=== PATIENT | male | born 1940 | race Caucasian/White ===

== ENCOUNTER 2019-04-14 14:44 | Outpatient (CLI) | payer MEDICARE, SELFPAY ==
--- NOTE | ~2019-04-14 | MR_ITS ---
EXAMINATION: MR brain/brain stem wo/w con EXAM DATE: 04/14/2019 15:58 INDICATION: Lung cancer. TECHNIQUE: Magnetic resonance imaging (MRI) of the brain/brain stem obtained without contrast. Sagit geovanny T1, axial diffusion, gradient echo (T2*), T1, T2, FLAIR sequences obtained. Patient was then inj ected with 15 cc intravenous Multihance contrast. Axial and coronal postcontrast T1 weighted sequence s obtained. There is no prior study for comparison. FINDINGS: There are no areas of restricted diffusion to suggest acute infarction. There is no acute hemorrhage seen on the T2*, a hemosiderin sensitive sequence. No intraparenchymal brain mass lesion. There is mild periventricular and subcortical T2/FLAIR signal hyperintensity, nonspecific but probab ly related to small vessel ischemic disease (microangiopathy). There is mild prominence of the sulc i and ventricles related to cerebral atrophy. There are no extra-axial collections. Flow voids are seen in the cerebral arteries on the T2-weighted sequences consistent with their expected patency. The orbits are unremarkable. Soft tissue is unremarkable. Mild to moderate ethmoid and sphenoid muc operiosteal thickening. There are no areas of abnormal enhancement on the post contrast images. IMPRESSION: 1. No evidence of intracranial metastatic disease. 2. Chronic age related findings. 3. Mild sphenoid and ethmoid mucoperiosteal thickening. Reviewed, dictated and finalized at location A. ISTRY QUALITY CONTROL TECHNICIAN
[2019-04-14 15:20] LABS: Blood Urea Nitrogen 11 mg/dL (8-26); Estimated Glomerular Filt Rate > 60
== END 2019-04-14 14:45 | disposition home or self-care (01) ==
PROVIDERS: PCP Internal Medicine; Visit Provider Internal Medicine Medical Oncology
DX: C34.12 Malignant neoplasm of upper lobe, left bronchus or lung (principal); J32.9 Chronic sinusitis, unspecified
CPT/HCPCS: 70553; A9577

== ENCOUNTER 2020-05-03 14:38 | Outpatient (CLI) | payer MEDICARE, SELFPAY ==
--- NOTE | 2020-05-03 16:15 | WPDPFTINT ---
PFT Interpretation This is a pulmonary function test with spirometry, plethysmography and diffusing capacity. The test was performed and results interpreted in accordance with the 2019 and 2005 ATS/ERS Task Force guidelines respectively using the Global Lung Function Initiative-2012 reference equations. Patient demonstrated good effort and cooperation. Reproducibility criteria were met. The quality of the spirometry maneuver was Grade A. Findings: Spirometry: There is decreased maximal expiratory airflow at all lung volumes with a concave expiratory flow tracing. The FVC is 3.85, 94% predicted. The FEV1 is 1.61 L, 54% predicted. The FEV1: FVC ratio is 42%. Plethysmography: The total lung capacity is 8.52 L, 114% predicted. The functional residual capacity is 5.80 L, 142% predicted. The residual volume is 4.58 L, 163% predicted. Diffusing capacity: The absolute diffusion capacity is 13.1, 54% predicted. The diffusing capacity corrected for alveolar volume is 2.28, 66% predicted. Impression: There is a moderately severe obstructive abnormality. The increase in residual volume is consistent with air trapping from an obstructive abnormality. Hyperinflation is present is demonstrated by the increase in functional residual capacity and is consistent with an obstructive abnormality. The absolute diffusing capacity is moderately decreased and is mildly decreased when corrected for alveolar volume. There are no prior studies for comparison
== END 2020-05-03 14:39 | disposition home or self-care (01) ==
PROVIDERS: PCP Internal Medicine; Visit Provider Internal Medicine
DX: R06.09 Other forms of dyspnea (principal); R94.2 Abnormal results of pulmonary function studies
CPT/HCPCS: 94375; 94726; 94729

== ENCOUNTER 2021-03-29 12:30 | Outpatient (CLI) | payer MEDICARE, SELFPAY ==
--- NOTE | 2021-04-01 15:21 | WPDSIXMINUTE ---
Six Minute Walk Procedure Procedure Performed Pulmonary Stress Test (6 min walk) Six Minute Walk This is a 6 minute walk test. The test was performed and interpreted in accordance with the 2014 ERS/ATS task force guidelines. Findings: The patient's resting room air oxygen saturation measured by pulse oximetry was 94% and heart rate was 86 bpm. Patient ambulated for 213 meters and oxygen saturation remained 90 to 94%. Heart rate at the end of the study was 111 bpm. The patient did not qualify for supplemental oxygen at rest or with ambulation. There are no prior studies for comparison.
== END 2021-03-29 12:31 | disposition home or self-care (01) ==
PROVIDERS: PCP Internal Medicine; Visit Provider Internal Medicine
DX: J44.9 Chronic obstructive pulmonary disease, unspecified (principal)
CPT/HCPCS: 94618

== ENCOUNTER 2023-05-07 07:42 | Outpatient (CLI) | payer MEDICARE, SELFPAY ==
--- NOTE | ~2023-05-07 | CT_ITS ---
EXAMINATION: CT knee RT wo con DATE: 05/07/2023 08:12 INDICATION: Right knee pain TECHNIQUE: High resolution computed tomography (CT) of the right knee was performed without intraveno us contrast. Additional sagittal and coronal reconstructions were performed. Automated exposure contr ol and iterative reconstruction technique were employed. The dose-length product was 739.79 mGy-cm. COMPARISON: Radiograph dated 09/02/2022 FINDINGS: Alignment is normal. No fracture. There is mild joint space narrowing in the medial and lateral jeramy rtments which could be underestimated on nonweightbearing imaging. There is subarticular sclerosis an d cystic change with suggestion of early remodeling of the overlying articular cortex at the posterio r third of the lateral tibial plateau and at the central weightbearing lateral femoral condyle consis tent with overlying high-grade chondromalacia. Small knee joint effusion. Small enthesophytes at the patellar insertion of the distal quadriceps tendon. Scattered atherosclerotic calcifications along th e popliteal arteries and the arteries of the upper calf. Soft tissues are otherwise unremarkable. IMPRESSION: 1. At least mild osteoarthritis in the medial lateral compartments with regions of high-grade chondro malacia in the lateral compartment. 2. Small right knee joint effusion. Reviewed, dictated and finalized at location L. IMPRESSION: 1. 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 2. Small right knee joint effusion.
== END 2023-05-07 07:43 | disposition home or self-care (01) ==
PROVIDERS: PCP Internal Medicine; Visit Provider Internal Medicine
DX: M25.461 Effusion, right knee (principal); M17.11 Unilateral primary osteoarthritis, right knee
CPT/HCPCS: 73700

== ENCOUNTER 2023-06-01 12:32 | Outpatient (CLI) | payer MEDICARE, SELFPAY ==
--- NOTE | ~2023-06-01 | MR_ITS ---
MRI of the right knee Clinical history: Lateral meniscus tear Technique: Coronal proton density and proton density-weighted images, sagittal proton-density and T2 fat-sat images, and axial proton-density fat-saturated images were acquired. Findings: Anterior and posterior cruciate ligaments are intact. Medial collateral ligament and the la teral collateral ligament complex are intact. Popliteus tendon is intact. There is complex tearing of the posterior horn and body segment of the medial meniscus. There is also complex tearing throughout the lateral meniscus, especially posterior horn and body segment. 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 There is extensive hig h-grade chondromalacia of the medial compartment. There is diffuse mild chondromalacia the patellofem oral compartment. Extensor mechanism is intact. Moderate to large joint effusion present. No significant Napoles's cyst. Impression: Complex tearing of the posterior horn and body segment of the medial meniscus. Complex tearing of the entire lateral meniscus, especially posterior horn and body segment. Severe chondromalacia of the lateral compartment, as detailed above. Additional degenerative change o f the medial patellofemoral components, as above. Moderate to large joint effusion. Reviewed, dictated and finalized at location . Impression: Complex tearing of the posterior horn and body segment of the medial meniscus. Complex tearing of the entire lateral meniscus, especially posterior horn and b kaz segment. Severe chondromalacia of the lateral compartment, as detailed above. Additional degenerative change of the medial patellofemoral components, as above. Moderate to large joint effusion.
== END 2023-06-01 12:33 | disposition home or self-care (01) ==
PROVIDERS: PCP Internal Medicine; Visit Provider Orthopaedic Surgery
DX: S83.231A Complex tear of medial meniscus, current injury, right knee, initial encounter (principal); S83.271A Complex tear of lateral meniscus, current injury, right knee, initial encounter; X58.XXXA Exposure to other specified factors, initial encounter; M25.461 Effusion, right knee
CPT/HCPCS: 73721

== ENCOUNTER 2023-06-18 08:58 | Outpatient (CLI) | payer MEDICARE, SELFPAY ==
--- NOTE | 2023-06-18 09:22 | ECG_ITS ---
SEE SCANNED COPY FOR CONFIRMED REPORT MTDD
== END 2023-06-18 08:59 | disposition home or self-care (01) ==
PROVIDERS: PCP Internal Medicine; Visit Provider Orthopaedic Surgery
DX: F17.210 Nicotine dependence, cigarettes, uncomplicated (principal); Z01.818 Encounter for other preprocedural examination
CPT/HCPCS: 93005

== ENCOUNTER 2023-06-22 03:48 | Day surgery (SDC) | payer MEDICARE, SELFPAY ==
[2023-06-17 10:55] VITALS: BMI 23.2
--- NOTE | 2023-06-17 11:14 | PC.NURSE ---
PRE-OP INSTRUCTIONS, PLEASE READ CAREFULLY Report to the Outpatient Waiting Room, entrance under the green pavilion located off [address], at time _0930_ on date _06/22/23_. Planned Procedure Time: _1130_. BRING WALKER WITH YOU Time changes happen often and if your time is changed the preop area will call you the afternoon before. - You and your visitor will be asked to self-screen and do not enter if you have any COVID symptoms. - A mask is optional within the hospital at this time. Patients may have clear liquids (water, carbonated beverages, clear teas, apple juice) until 3 hours prior to surgery (0830 AM) with a maximum of 20 ounces. - No food from midnight until time of surgery Take the following medications with a SIP of water the morning of surgery: _BREO ELLIPTA INHALER, & ALBUTEROL INHALER, TYLENOL IF NEEDED_ DO NOT STOP ANY OF YOUR OTHER PRESCRIPTION MEDICATIONS PRIOR TO SURGERY ?EXCEPT THE FOLLOWING Medications to discontinue - _NAPROXEN PER DR. NGUYỄN'S INSTRUCTIONS_ Please no make-up, nail kiswahili, hairspray, perfume, deodorant, or body powder the day of surgery. No jewelry (including any body piercings) or valuables the day of surgery, leave them at home. Please take a shower or bath the night before, or the morning of, surgery with an antibacterial soap. Wear comfortable, loose fitting clothing. - Jewelry must be removed prior to entering the operating room. Rings and piercings that are not removed may be cut off. - The hospital will not accept responsibility for valuables. - Please leave all valuables, including medications, at home the day of surgery. If you are going home after surgery, a licensed industrial truck driver must drive you home. - NO public transportation without another adult if you receive anesthesia. - We recommend that an adult stay with you for 24 hours following discharge. - We also recommend that you do not drive, make important decision, drink alcoholic beverages, or take any drugs that were not prescribed by your health care provider for at least 24 hours after your discharge time. Follow any additional instructions given to you from your surgeon. If you or anyone in your household have experienced Covid symptoms in the past week, please notify your surgeon or the nurse liaison at the phone number below for possible testing. Telephone instructions given to _PATIENT & SPOUSE_and asked if any additional questions and then verbalized understanding. Patient advised to call surgeon office or pre surgery nurse liaison [phone] if any additional questions.
--- NOTE | 2023-06-18 09:12 | PM.IMHP ---
H&P: HPI History of Present Illness Date/Time: 06/18/23 09:12 Chief Complaint: Patient has catching locking was right knee with meniscal pathology. He does have arthritis in the knee as well. Review of Systems Musculoskeletal: Musculoskeletal: Reports arthralgias and Reports joint swelling [facility] Past Medical History Medical History COPD (chronic obstructive pulmonary disease) History of lung cancer Surgical History Surgical History History of hip surgery History of lung surgery cyberknife Family History Family History Father Hypertension Social History Social History Smoking packs per day: 1 Smoking cigarettes per day: 20.0 Years smoked: 35 Smoking pack-years: 35.00 Smoking status: Former smoker Tobacco type: cigarettes Second hand tobacco smoke exposure: No Smoking end date: 02/23/83 Alcohol intake: current Alcohol use details: MAYBE 6 IN 3 MONTHS Substance use: never Substance use type: does not use Do You Feel Safe in your Home?: Yes Lack of Transportation: No Lack of Food: Never True Current Housing: I Have Housing Concerned About Future Housing: No Difficulty Paying Gas/Electric Bills: No Difficulty Paying for Meds: No Currently Unemployed: No Education: High School Diploma/GED Difficulty w/ Childcare or Family Care: Decline to Answer Living arrangements: with family Occupation/Education: retired Spiritual care concerns: No Meds Home Medications and Allergies Home Medications Medication Instructions Recorded Confirmed Type albuterol sulfate 90 mcg/actuation 1 inh inhalation Q4H PRN Wheezing 02/10/23 06/17/23 History aerosol inhaler diazepam 5 mg tablet 5 mg PO QHS PRN Sleep 02/10/23 06/17/23 History fluticasone furoate 100 1 inh inhalation DAILY 02/10/23 06/17/23 History mcg-vilanterol 25 mcg/dose inhalation powder (Breo Ellipta) tamsulosin 0.4 mg capsule (Flomax) 0.4 mg PO DAILY 02/10/23 06/17/23 History naproxen sodium 220 mg capsule 220 mg PO BID PRN Pain 05/21/23 06/17/23 History (Aleve) acetaminophen 500 mg tablet 1,000 mg QID PRN Pain 06/17/23 06/17/23 History Allergies Allergy/AdvReac Type Severity Reaction Status Date / Time No Known Allergies Allergy Verified 06/17/23 10:52 Exam Narrative: On exam he is tender medially on his RIGHT knee. He has catching and locking him mechanical-type symptoms in his knee. He walks with an antalgic gait. Neurologically appears to be grossly intact. Eyes: General: appearance normal, both eyes and all related structures Neck: Neck: supple Resp: Effort & Inspection: normal respiratory effort Cardio: Rate: regular rate Rhythm: regular rhythm Radiology Reports: Comments: Patient: Dagoberto Garland : 1940 MR#: [id number] Age: 83 Loc: [facility]? ? ADM Date: 06/01/23Attending Dr: Srinivas Xiao M.D. Ordering Physician: Srinivas Xiao MD Date of Service: 06/01/23 Procedure(s): MR knee RT wo con Accession Number(s): [id number] MRI of the right knee Clinical history: Lateral meniscus tear Technique: Coronal proton density and proton density-weighted images, sagittal proton-density and T2 fat-sat images, and axial proton-density fat-saturated images were acquired. Findings: Anterior and posterior cruciate ligaments are intact. Medial collateral ligament and the lateral collateral ligament complex are intact. Popliteus tendon is intact. There is complex tearing of the posterior horn and body segment of the medial meniscus. There is also complex tearing throughout the lateral meniscus, especially posterior horn and body segment. 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 There is e
[2023-06-22] VITALS (11 sets, daily range): BP systolic 110–179; BP diastolic 59–85; PULSE 65–79; RESP 14–18; TEMP 36.5–36.6; O2SAT 92–100
--- NOTE | 2023-06-22 06:46 | WPDHPUPDATE1 ---
History and Physical Update Update Date/Time: 06/22/23 06:46 History and Physical has been reviewed, including an updated exam of the patient. There are NO changes in the patient's condition. Risks, benefits, and alternatives have been discussed and questions answered. Patient agrees to proceed with procedure.
[2023-06-22] MEDS: ACETAMINOPHEN 500 MG TABLET 1000 MG PO (10:31)
[2023-06-22] MEDS: LACTATED RINGERS 1,000 ML 30 ML IV CONT (10:38)
[2023-06-22] MEDS: KETOROLAC 15 MG/ML VIAL (*BKC) IV PUSH (10:38)
--- NOTE | 2023-06-22 11:42 | WPDANESEPPF ---
Anes - Initial Pre Proc Eval Procedure: Operation Date: 06/22/23 11:30 Proposed Procedures p Right Knee Arthroscopy, Partial Meniscectomy, Proceed As Indicated - Srinivas Xiao MD Date/Time: 06/22/23 11:42 Surgeon: Srinivas Xiao MD Pre Op Diagnosis: right knee medial meniscal tear Patient Data Age: 83 Gender: M Height: 1.83 m Weight: 79 kg Last Vital Signs Temp 97.8 F 06/22/23 10:51 Pulse 70 06/22/23 10:51 Resp 16 06/22/23 10:51 BP 179/80 H 06/22/23 10:51 Pulse Ox 97 06/22/23 10:51 O2 Del Method Room Air 06/22/23 10:51 Allergies Allergy/AdvReac Type Severity Reaction Status Date / Time No Known Allergies Allergy Verified 06/22/23 10:28 Home Medications Medication Instructions Recorded Confirmed Type albuterol sulfate 90 mcg/actuation 1 inh inhalation Q4H PRN Wheezing 02/10/23 06/22/23 History aerosol inhaler diazepam 5 mg tablet 5 mg PO QHS PRN Sleep 02/10/23 06/22/23 History fluticasone furoate 100 1 inh inhalation DAILY 02/10/23 06/22/23 History mcg-vilanterol 25 mcg/dose inhalation powder (Breo Ellipta) tamsulosin 0.4 mg capsule (Flomax) 0.4 mg PO DAILY 02/10/23 06/22/23 History naproxen sodium 220 mg capsule 220 mg PO BID PRN Pain 05/21/23 06/22/23 History (Aleve) acetaminophen 500 mg tablet 1,000 mg QID PRN Pain 06/17/23 06/22/23 History Patient hx anesthesia problems: none Family hx anesthesia problems: none Results Review: All pre-operative results and documents have been reviewed as part of the pre-operative evaluation. [facility] Past Medical History Medical History COPD (chronic obstructive pulmonary disease) History of lung cancer Surgical History Surgical History History of hip surgery History of lung surgery cyberknife Family History Family History Father Hypertension Social History Social History Smoking packs per day: 1 Smoking cigarettes per day: 20.0 Years smoked: 35 Smoking pack-years: 35.00 Smoking status: Former smoker Tobacco type: cigarettes Second hand tobacco smoke exposure: No Smoking end date: 02/23/83 Alcohol intake: current Alcohol use details: MAYBE 6 IN 3 MONTHS Substance use: never Substance use type: does not use Do You Feel Safe in your Home?: Yes Lack of Transportation: No Lack of Food: Never True Current Housing: I Have Housing Concerned About Future Housing: No Difficulty Paying Gas/Electric Bills: No Difficulty Paying for Meds: No Currently Unemployed: No Education: High School Diploma/GED Difficulty w/ Childcare or Family Care: Decline to Answer Living arrangements: with family Occupation/Education: retired Spiritual care concerns: No Anes - Eval Final PreProcedure Day of Procedure 06/22/23 11:42 Patient weight: normal Heart: regular rate and rhythm Lungs: clear to auscultation Airway: Mallampati scale class II Neurological: alert and oriented Last oral intake: >/= 8 hours ASA classification: IV Emergent: no Anesthetic plan: proceed Anesthesia type and monitoring: general LMA and standard monitoring Results Review: All pre-operative results and documents have been reviewed as part of the pre-operative evaluation. Informed Consent: The patient's anesthetic plan and its attendant risks and benefits were discussed with the patient/family/POA. Questions were solicited and answers provided to the satisfaction of the patient/family/POA.
[2023-06-22] MEDS: ceFAZolin 2 GM/D5W 50 ML 2 GM/50 ML BAG IVPB (12:12)
[2023-06-22] MEDS: LIDOCAINE HCL 1% LOCAL INJ 20 ML VIAL INFILTRATE (12:19)
--- NOTE | 2023-06-22 12:54 | W.PM.PROC2 ---
Procedure Note - Detailed Date of Procedure 06/22/23 Pre-op Diagnosis RIGHT knee medial and Lateral meniscal tears Post-op Diagnosis Same Procedure Performed RIGHT knee arthroscopy with partial meniscetomy, medial and lateral Surgeon Srinivas Xiao MD Anesthesia General Indications Pain and Catching Description of Procedure Patient brought to operating room # 9. An anesthetic was administered. The knee was steriley prepped and draped in the usual manner. Standard portals were used. Superior medial portal was used for the outflow cannula, inferior lateral portal was used for the scope, inferior medial portal was used for the instruments. Arthroscopy was performed, the patellar femoral joint degenerative changes. The medial compartment showed a complex tear and grade 2-3 changes. The lateral compartment showed a complex tear and grade 3-4 changes. The ACL was intact. Using baskets and lisbeth the meniscal tears were trimmed back to a stable base so the nothing further could be pulled into the joint. Any loose or delaminated fragments were gently trimmed to a stable base. At this point the instruments were withdrawn, sutures placed and patient left the operating room in satisfactory condition. Estimated Blood Loss 20 Drains No Packing No Pathology None sent Complications No immediate complications Condition Stable Disposition PACU [facility] Billing Surgery - Charge Forward: Surgery Billing ([id number] Medial and Lateral Partial Menisectomy RIGHT)
[2023-06-22] MEDS: oxyCODONE HCL (*CRX) 2.5 MG TAB IR PO (15:34)
== END 2023-06-22 16:25 | disposition home or self-care (01) ==
PROVIDERS: PCP Internal Medicine; Visit Provider Orthopaedic Surgery
PROC: (CPT 29870; principal; 2023-06-22 11:30)
DX: S83.231A Complex tear of medial meniscus, current injury, right knee, initial encounter (principal); S83.271A Complex tear of lateral meniscus, current injury, right knee, initial encounter; M17.11 Unilateral primary osteoarthritis, right knee; M94.261 Chondromalacia, right knee; J44.9 Chronic obstructive pulmonary disease, unspecified; Z79.51 Long term (current) use of inhaled steroids; Z79.1 Long term (current) use of non-steroidal anti-inflammatories (NSAID); Z98.890 Other specified postprocedural states; Z85.118 Personal history of other malignant neoplasm of bronchus and lung; Z87.891 Personal history of nicotine dependence; X58.XXXA Exposure to other specified factors, initial encounter
CPT/HCPCS: 29880; 93005; A9270; J0690; J1100; J1596; J1885; J2405; J2704; J3010; J7120

== ENCOUNTER 2023-11-05 14:00 | Outpatient (RCR) | payer MEDICARE, SELFPAY ==
--- NOTE | 2023-09-30 15:20 | OPREHPOC ---
Outpatient Therapy Plan of Care This is a Multidisciplinary Plan of Care that may contain components documented by all disciplines (PT, OT, and ST.) PT Problem 1 PT Problem #1 Knowledge Deficit PT Goal 1 Goal *indep with HEP Target Visit 8 PT Problem 2 PT Problem #2 Pain PT Goal 1 Goal 1* pt report pain at worst rating of 6/10 Target Visit 8 PT Problem 3 PT Problem #3 Impaired Flexibility PT Goal 1 Goal increase flexibility of R hip and knee, to improve stability and alignment of LE 1* supine knee extension (-5') 2* anterior hip-quad length with supine and leg over edge of mat: knee flexion 115' 3* supine hamstring length with SLR 60' Target Visit 8 PT Problem 4 PT Problem #4 Impaired Strength PT Goal 1 Goal increase strength of R hip and knee to improve stability to knee 1* supine strengthening exercises on mat x 20 reps 2* maximum walking tolerance of 300' 3* sit to stand with use of 1 UE and not labored Target Visit 8
--- NOTE | 2023-09-30 15:21 | PTOPEVAL1 ---
Assessment and note entered by Katlyn Cavazos, PT Evaluation Information Assessment Status Evaluation Diagnosis R knee OA, tear lateral meniscus ICD-10 Condition Codes (PT) M25.561 Onset Nov 2022 Subjective Information knee pain onset in Nov 2022; had R knee arthroscopy May 2023; continue to have knee pain after surgery; cortisone shot x4 without relief taking tylenol and advil for pain; using the wheeled walker before knee surgery & since knee originally hurting in Nov. activity: indep with bathing, dressing, use the wheeled walker all of the time; walk tolerance about 150' then have to sit due to knee pain; Reported Pain Level Pain Score Self Report Additional Pain Score Comments pain range in the past week; 0-9/10 increase pain: walking, standing no issues with sleeping Assessment PT Clinical Summary Amilcar has the diagnosis of R knee pain. He is s/p R knee arthroscopy with medial menisectomy in May. He continues to have pain in knee since surgery. History of R THR in 2013 and has COPD, lung cancer. Prior to onset of knee pain in Nov, he was active, did not use assistive device and walking was not limited with knee pain. With the evaluation, he has decreased ROM and strength of R hip and knee, with maximum walking distance of 150' with wheeled walker, due to knee pain. Skilled PT services are indicated for modalities to decrease pain, therapeutic exercises to increase strength and flexibility of hip and knee, with education for HEP and pain control. Plan of Care Interventions Electrical Stimulation,Hot Pack/Cold Pack,Manual Therapy,Neuro Re-education,Patient/Caregiver Education,Therapeutic Activities,Therapeutic Exercise,Ultrasound,Other Other Interventions taping PT Services Indicated Yes Treatment Frequency and 1-
--- NOTE | 2023-10-23 09:56 | PCPTNOTE ---
Pt cancelled due to illness.
--- NOTE | 2023-10-28 09:21 | PCPTNOTE ---
Pt's cancelled appt today due to patine not wanting to get out of bed .
--- NOTE | 2023-11-03 14:27 | OPREHPOC ---
Outpatient Therapy Plan of Care This is a Multidisciplinary Plan of Care that may contain components documented by all disciplines (PT, OT, and ST.) PT Problem 1 PT Problem #1 Knowledge Deficit PT Goal 1 Goal / Goal Update *indep with HEP Target Visit 8 Progress Met PT Goal 2 Goal / Goal Update 11-03-23 progress met goal continue towards, to progress education Target Visit 12 PT Problem 2 PT Problem #2 Pain PT Goal 1 Goal / Goal Update 1* pt report pain at worst rating of 6/10 Target Visit 8 Progress Not Met PT Goal 2 Goal / Goal Update 11-03-23 progress not met; pain at worst 10/10; continue towards goal Target Visit 12 PT Problem 3 PT Problem #3 Impaired Flexibility PT Goal 1 Goal / Goal Update increase flexibility of R hip and knee, to improve stability and alignment of LE 1* supine knee extension (-5') 2* anterior hip-quad length with supine and leg over edge of mat: knee flexion 115' 3* supine hamstring length with SLR 60' Target Visit 8 Progress Not Met PT Goal 2 Goal / Goal Update 11-03-23 progress goals not met but all improved continue towards goals Target Visit 12 PT Problem 4 PT Problem #4 Impaired Strength PT Goal 1 Goal / Goal Update increase strength of R hip and knee to improve stability to knee 1* supine strengthening exercises on mat x 20 reps 2* maximum walking tolerance of 300' 3* sit to stand with use of 1 UE and not labored Target Visit 8 Progress Partially Met PT Goal 2 Goal / Goal Update 11-03-23 progress met goal 2 upgrade goal 2- 6 minute walking test disatnce of 450' continue with goal 1 & 3 Target Visit
--- NOTE | 2023-11-03 14:27 | PTOPPROG ---
Assessment and note entered by Katlyn Cavazos, PT Progress Report Assessment Status Progress Diagnosis R knee OA, tear lateral meniscus ICD-10 Condition Codes (PT) M25.561 Onset Nov 2022 Subjective Information have been doing the exercises; use the walker always when walking; dr may try an injection of gel into his knee; have been doing the exercises at home; want to continue with more therapy to get stronger; PAIN: R knee sharp, stabbing, to 10/10 at worst with walking; Assessment PT Clinical Summary Amilcar has received 6 PT sessions. He canceled 2 appointments due to illness. Compared to the initial evaluation: pain range from 0-9/10 to 0-10/10, continues to have sharp stabbing pain over R knee; increase R knee extension ROM in supine from (-20') to (-10') and anterior hip-quad length improved with supine and leg over edge of mat, knee flexion 95' to 105'; maximum walking distance with wheeled walker from 150' to 450' tolerance; education for HEP and correct gait posture. The goals were partially met. Continue PT treatment. Plan of Care Interventions Electrical Stimulation,Gait Training,Hot Pack/Cold Pack,Manual Therapy,Neuro Re-education,Patient/ Caregiver Education,Therapeutic Activities, Therapeutic Exercise Other Interventions taping PT Services Indicated Yes Treatment Frequency and 1-2x/wk for 6 weeks Duration These treatments will address the objective and functional deficits as defined above. The patient will be advanced safely and appropriately in order for the patient to progress towards his/her prior level of function. Additional exercises will be introduced and as well as a comprehensive home exercise program upon discharge, if needed, ?to ensure carryover of functional gains achieved in the clinic. This treatment plan has been reviewed and agreement upon by the patient.
--- NOTE | 2023-12-04 16:10 | PTOPDC ---
Assessment and note entered by Katlyn Cavazos, PT Discharge report Assessment Status Discharge - Pt Not Present Diagnosis R knee OA, tear lateral meniscus ICD-10 Condition Codes (PT) M25.561 Onset Nov 2022 Subjective Information pt did not show for today's appointment. Talked with his on the phone: she stated their insurance has changed and they received a letter stating that his therapy was no longer covered, so they did not come in for today's appt. Discussed pt status with her---she states he is about the same and trying to get injections into his knees to help with the pain; he is not doing any different. Assessment PT Clinical Summary After the above conversation with his , we concluded to discharge PT at this time and let him get more medical treatment for his knees. He is to continue with the exercises as he can tolerate. Discharge PT. Plan of Care PT Services Indicated No
== END 2023-12-07 09:23 | disposition home or self-care (01) ==
LOC: ANHPT 14:00
PROVIDERS: PCP Internal Medicine; Visit Provider Orthopaedic Surgery
DX: S83.241A Other tear of medial meniscus, current injury, right knee, initial encounter (principal); S83.281A Other tear of lateral meniscus, current injury, right knee, initial encounter
CPT/HCPCS: 97014; 97110; 97161; 97530; G0283